=== PATIENT | male | born 1995 | race Caucasian/White ===

== ENCOUNTER 2019-06-06 18:07 | Emergency (ER) | payer SELFPAY ==
--- NOTE | 2019-06-06 19:10 | EDPHYS ---
Physician Documentation [facility] Name: Arie Livingston Age: 23 yrs Sex: Male : 1995 Arrival Date: 06/06/2019 Time: 18:08 Bed 10 Private MD: ED Physician David Barclay HPI: 06/06 18:40 This 23 yrs old Male presents to ER via Ambulatory with complaints of Hand jr8 Injury. 18:40 The patient or guardian reports decreased range of motion, pain, swelling, tenderness. jr8 The complaints affect the right 4th and 5th metacarpals, MCP of right ring finger and MCP of right little finger. Context: The problem was sustained at home, resulted from using own fist to strike, metal pole. Onset: The symptoms/episode began/occurred acutely, 2 day(s) ago. Modifying factors: The symptoms are alleviated by ice/coldpack to affected area, OTC meds, the symptoms are aggravated by movement. Associated signs and symptoms: Pertinent negatives: decreased sensation distally, numbness distally, tingling distally. Severity of symptoms: At their worst the symptoms were moderate, in the emergency department the symptoms are unchanged. The patient has not experienced similar symptoms in the past. The patient has not recently seen a physician. punching punching bag 2 days ago and missed, striking metal pole with closed fist. Historical: - Allergies: 18:24 No Known Allergies; ak1 - Home Meds: 18:24 None [Active]; ak1 - PMHx: 18:24 None; ak1 - PSHx: 18:24 None; ak1 - Immunization history:: Adult Immunizations unknown. - Social history:: Smoking status: Patient uses tobacco products, smokes one-half pack cigarettes per day. - Ebola Screening: : No symptoms or risks identified at this time. ROS: 18:40 Constitutional: Negative for fever, chills, and weight loss, Eyes: Negative for injury, jr8 pain, redness, and discharge, ENT: Negative for injury, pain, and discharge, Neck: Negative for injury, pain, and swelling, Cardiovascular: Negative for chest pain, palpitations, and edema, Respiratory: Negative for shortness of breath, cough, wheezing, and pleuritic chest pain, Abdomen/GI: Negative for abdominal pain, nausea, vomiting, diarrhea, and constipation, Back: Negative for injury and pain, Skin: Negative for injury, rash, and discoloration, Neuro: Negative for headache, weakness, numbness, tingling, and seizure. 18:40 MS/extremity: Positive for decreased range of motion, pain, swelling, Negative for paresthesias, puncture. Exam: 18:40 Constitutional: This is a well developed, well nourished patient who is awake, alert, jr8 and in no acute distress. Head/Face: Normocephalic, atraumatic. Eyes: Pupils equal round and reactive to light, extra-ocular motions intact. Lids and lashes normal. Conjunctiva and sclera are non-icteric and not injected. Cornea within normal limits. Periorbital areas with no swelling, redness, or edema. ENT: Nares patent. No nasal discharge, no septal abnormalities noted. Tympanic membranes are normal and external auditory canals are clear. Oropharynx with no redness, swelling, or masses, exudates, or evidence of obstruction, uvula midline. Mucous membranes moist. Neck: Trachea midline, no thyromegaly or masses palpated, and no cervical lymphadenopathy. Supple, full range of motion without nuchal rigidity, or vertebral point tenderness. No Meningismus. Chest/axilla: Normal chest wall appearance and motion. Nontender with no deformity. No lesions are appreciated. Cardiovascular: Regular rate and rhythm with a normal S1 and S2. No gallops, murmurs, or rubs. Normal PMI, no JVD. No pulse deficits. Respiratory: Lungs have equal breath sounds bilaterally, clear to auscultation and percussion. No rales, rhonchi or wheezes noted. No increased work of breathing, no retractions or nasal flaring. Abdomen/GI: Soft, non-tender, with normal bowel sounds. No distension or tympany. No guarding or rebound. No evidence of tenderness throughout. Back: No spinal tenderness. No costovertebral tenderness. Full range of motion. Skin: Warm, dry with normal turgor. Normal color with no rashes, no lesions, and no evidence of cellulitis. Neuro: Awake and alert, GCS 15, oriented to person, place, time, and situation. Cranial nerves II-XII grossly intact. Motor strength 5/5 in all extremities. Sensory grossly intact. Cerebellar exam normal. Normal gait. 18:40 Musculoskeletal/extremity: Extremities: grossly normal except: noted in the right hand: decreased ROM, swelling, tenderness, ROM: limited active range of motion due to pain, in the right hand, Circulation is intact in all extremities. Pulses: noted to be 2+ in the right radial artery and left radial artery, Sensation intact. Joints: All joints are normal except the MCP of right little finger and MCP of right ring finger displays tenderness. Vital Signs: 18:20 BP 140 / 95; Pulse 81; Resp 18; Temp 98.2; Pulse Ox 100% on R/A; Weight 95.25 kg (R); ak1 Height 5 ft. 11 in. (180.34 cm) (R); Pain 0/10; 18:20 Body Mass Index 29.29 (95.25 kg, 180.34 cm) ak1 Procedures: 19:03 Splinting: Splint applied to right hand using Orthoglass splint, applied by nurse. jr8 Examined by me, post splint application: neurovascular intact, 2+ distal pulses palpable, brisk capillary refill noted, Patient tolerated well. MDM: 18:32 Patient medically screened. jr8 18:40 Differential diagnosis: dislocation, open fracture, closed fracture, contusion. Data jr8 reviewed: vital signs, nurses notes. Data interpreted: Pulse oximetry: on room air is 97 %. Interpretation: normal. 19:03 Data reviewed: radiologic studies, plain films. Counseling: I had a detailed discussion jr8 with the patient and/or guardian regarding: the historical points, exam findings, and any diagnostic results supporting the discharge/admit diagnosis, radiology results, the need for outpatient follow up, a orthopedic surgeon, to return to the emergency department if symptoms worsen or persist or if there are any questions or concerns that arise at home. 06/06 18:27 Order name: XRAY Hand RIGHT 3 View ak1 06/06 19:02 Order name: Ulnar Gutter splint; Complete Time: 19:33 jr8 Administered Medications: No medications were administered Disposition: 20:00 Co-signature as Attending Physician, David Barclay MD. Disposition: 06/06/19 19:04 Discharged to Home. Impression: Nondisplaced fracture of neck of fifth metacarpal bone, right hand. - Condition is Stable. - Discharge Instructions: Boxer's Fracture. - Prescriptions for Ibuprofen 800 mg Oral Tablet - take 1 tablet by ORAL route every 12 hours As needed take with food; 20 tablet. - Medication Reconciliation Form, Thank You Letter, Antibiotic Education, Prescription Opioid Use form. - Follow up: Jeferson Rubin MD; When: 5 - 6 days; Reason: Recheck today's complaints, Continuance of care, Re-evaluation by your physician. - Problem is new. - Symptoms have improved. Signatures: Dispatcher [employer] EDMS Rabia Espinal RN RN aa1 Alessandro Bullard PA PA jr8 Gracie Gibbs RN RN ak1 David Barclay MD MD gs Corrections: (The following items were deleted from the chart) 19:32 19:04 06/06/2019 19:04 Discharged to Home. Impression: Nondisplaced fracture of neck of aa1 fifth metacarpal bone, right hand. Condition is Stable. Forms are Medication Reconciliation Form, Thank You Letter, Antibiotic Education, Prescription Opioid Use. Follow up: Jeferson Rubin; When: 5 - 6 days; Reason: Recheck today's complaints, Continuance of care, Re-evaluation by your physician. Problem is new. Symptoms have improved. jr8
--- NOTE | 2019-06-06 19:10 | ER ---
Nurse's Notes [facility] Name: Arie Livingston Age: 23 yrs Sex: Male : 1995 Arrival Date: 06/06/2019 Time: 18:08 Bed 10 Private MD: Diagnosis: Nondisplaced fracture of neck of fifth metacarpal bone, right hand Presentation: 06/06 18:21 Presenting complaint: Patient states: he was using his punching bag at home when he ak1 missed hitting the metal pole with his right hand. swelling noted to right hand. pt c/o increased pain with movement. pulses and ROM intact to right hand. Transition of care: patient was not received from another setting of care. Onset of symptoms was June 05, 2019. Risk Assessment: Do you want to hurt yourself or someone else? Patient reports no desire to harm self or others. Initial Sepsis Screen: Does the patient meet any 2 criteria? No. Patient's initial sepsis screen is negative. Does the patient have a suspected source of infection? No. Patient's initial sepsis screen is negative. Note ice applied to right hand. Care prior to arrival: None. 18:21 Method Of Arrival: Ambulatory ak1 18:21 Acuity: CHARLY 4 ak1 Triage Assessment: 18:24 General: Appears in no apparent distress. Behavior is calm, cooperative. Pain: ak1 Complains of pain in right hand. EENT: No signs and/or symptoms were reported regarding the EENT system. Neuro: No deficits noted. Cardiovascular: No deficits noted. Respiratory: No deficits noted. GI: No signs and/or symptoms were reported involving the gastrointestinal system. : No signs and/or symptoms were reported regarding the genitourinary system. Derm: Skin is dry, Skin is pink, warm \T\ dry. swelling noted to right hand. Musculoskeletal: Capillary refill < 3 seconds, Range of motion: limited in right finger and hand due to pain Swelling present in right hand. Injury Description: pt punched metal pole on accident while exercising. Historical: - Allergies: 18:24 No Known Allergies; ak1 - Home Meds: 18:24 None [Active]; ak1 - PMHx: 18:24 None; ak1 - PSHx: 18:24 None; ak1 - Immunization history:: Adult Immunizations unknown. - Social history:: Smoking status: Patient uses tobacco products, smokes one-half pack cigarettes per day. - Ebola Screening: : No symptoms or risks identified at this time. Screenin:25 Abuse screen: Denies threats or abuse. Denies injuries from another. Nutritional ak1 screening: No deficits noted. Tuberculosis screening: No symptoms or risk factors identified. Fall Risk None identified. Assessment: 18:27 Reassessment: Patient appears in no apparent distress at this time. No changes from ak1 previously documented assessment. Patient and/or family updated on plan of care and expected duration. Pain level reassessed. Patient is alert, oriented x 3, equal unlabored respirations, skin warm/dry/pink. see triage assessment. General: Appears in no apparent distress. 19:24 Reassessment: Patient appears in no apparent distress at this time. Patient is alert, aa1 oriented x 3, equal unlabored respirations, skin warm/dry/pink. Discussed d/c \T\ f/u instructions with pt; denies questions or concerns at this time Patient states feeling better. Vital Signs: 18:20 BP 140 / 95; Pulse 81; Resp 18; Temp 98.2; Pulse Ox 100% on R/A; Weight 95.25 kg (R); ak1 Height 5 ft. 11 in. (180.34 cm) (R); Pain 0/10; 18:20 Body Mass Index 29.29 (95.25 kg, 180.34 cm) ak1 ED Course: 18:08 Patient arrived in ED. rg4 18:20 Gracie Gibbs, RN is Primary Nurse. ak1 18:23 Triage completed. ak1 18:24 Arm band placed on Patient placed in an exam room, on a stretcher, Patient notified of ak1 wait time. 18:26 Patient has correct armband on for positive identification. Bed in low position. Call ak1 light in reach. Adult w/ patient. 18:27 [facility] jr8 18:27 David Barclay MD is Attending Physician. jr8 19:03 Jeferson Rubin MD is Referral Physician. jr8 19:06 Alessandro Bullard PA is PHCP. jr8 19:11 XRAY Hand RIGHT 3 View In Process Unspecified. EDMS 19:30 No provider procedures requiring assistance completed. Patient did not have IV access aa1 during this emergency room visit. Orthoglass splint: Ulnar gutter/Boxer splint applied on right forearm. by Barney Gr. Administered Medications: No medications were administered Outcome: 19:04 Discharge ordered by . mikey 19:30 Discharged to home ambulatory, with significant other. aa1 19:30 Condition: good 19:30 Discharge instructions given to patient, significant other, Instructed on discharge instructions, follow up and referral plans. medication usage, Demonstrated understanding of instructions, follow-up care, medications, splint care, Prescriptions given X 1. 19:32 Patient left the ED. aa1 Signatures: Dispatcher [employer] EDMS Rabia Espinal RN RN aa1 Alessandro Bullard PA PA jr8 Gracie Gibbs RN RN ak1 Brenda Covarrubias rg4
--- NOTE | 2019-06-06 19:29 | RAD REPORT ---
EXAM DESCRIPTION: RAD - Hand Right 3 View - 06/06/2019 7:05 pm CLINICAL HISTORY: Right hand pain status post injury FINDINGS: Mildly to moderately displaced fracture involves the region of the fifth metacarpal neck. No dislocation
== END 2019-06-06 19:32 | disposition home or self-care (01) ==
LOC: ER 18:07
PROC: 2W3CX1Z Immobilization of Right Lower Arm using Splint (ICD-10-PCS; principal; 2019-06-06)
DX: S62.336A Displaced fracture of neck of fifth metacarpal bone, right hand, initial encounter for closed fracture (principal); W22.8XXA Striking against or struck by other objects, initial encounter; F17.210 Nicotine dependence, cigarettes, uncomplicated
CPT/HCPCS: 99283